=== PATIENT | female | born 1965 | race Caucasian/White ===

== ENCOUNTER 2019-02-04 20:49 | Emergency (ER) | payer SELFPAY ==
[2019-02-04 20:59] VITALS: RESP 20; O2SAT 99
--- NOTE | 2019-02-04 22:11 | C.PDOC ---
History Of Present Illness 53 year old female hit her right elbow on a garbage container a week ago. Since then she has been out of work, she returned to work today with recurrence of the pain which prompted visit. Denies weakness or numbness. Time Seen by Provider: 02/04/19 21:12 Chief Complaint (Nursing): Upper Extremity Problem/Injury History Per: Patient History/Exam Limitations: no limitations Onset/Duration Of Symptoms: Days Current Symptoms Are (Timing): Still Present Exacerbating Factor(s): Nothing Recent travel outside of the [place]: No Past Medical History Reviewed: Historical Data, Nursing Documentation, Vital Signs Vital Signs: Last Vital Signs Temp 97.6 F 02/04/19 20:57 Pulse 63 02/04/19 20:57 Resp 20 02/04/19 20:57 BP 172/90 H 02/04/19 20:57 Pulse Ox 99 02/04/19 20:57 - Medical History PMH: HTN Family History: States: No Known Family Hx - Social History Hx Tobacco Use: No Hx Alcohol Use: No Hx Substance Use: No - Immunization History Hx Influenza Vaccination: No Hx Pneumococcal Vaccination: No Review Of Systems Musculoskeletal: Positive for: Other (Right elbow) Neurological: Negative for: Weakness, Numbness Physical Exam - Physical Exam Appears: Non-toxic Skin: Normal Color, Warm Head: Atraumatic, Normacephalic Eye(s): bilateral: Normal Inspection Extremity: Capillary Refill (<2 seconds), No Deformity, No Swelling, Other (No swelling, deformity, erythema, or ecchymosis of right elbow. ROM of right elbow causes pain but no limitations, remainder of RUE intact..) Pulses: Left Radial: Normal, Right Radial: Normal Neurological/Psych: Oriented x3, Normal Speech, Normal Motor, Normal Sensation ED Course And Treatment O2 Sat by Pulse Oximetry: 99 - Other Rad Right elbow x-ray X-Ray: Interpreted by Me, Viewed By Me Interpretation: No fracture or dislocations. Progress Note: Right elbow x-ray ordered, results were negative. Motrin administered. Patient is resting comfortably in no acute distress, vitals are stable, will discharge home with instructions to follow up with PMD. Disposition Counseled Patient/Family Regarding: Diagnosis, Need For Followup, Rx Given - Disposition Referrals: [facility] [Outside] Disposition: HOME/ ROUTINE Disposition Time: 22:06 Condition: STABLE Additional Instructions: POR FAVOR SIGUE EN CLINICA APPLICAR HIELO ( APPLY ICE) JANET MOTRIN ( TAKE MOTRIN DIRECTED) REGRESA SI PEOR (RETURN TO ER IF WORSE) Prescriptions: Ibuprofen [Motrin] 600 mg PO Q6H #30 tab Instructions: Contusion (DC) Forms: [employer] (Kiswahili) Print Language: LAO - Clinical Impression Clinical Impression: Contusion of elbow, right - PA / TILE EDGER / Resident Statement MD/DO has reviewed & agrees with the documentation as recorded. - Scribe Statement The provider has reviewed the documentation as recorded by the Scribe Donovan Blanco All medical record entries made by the Garfieldibkaitlin were at my direction and personally dictated by me. I have reviewed the chart and agree that the record accurately reflects my personal performance of the history, physical exam, medical decision making, and the department course for this patient. I have also personally directed, reviewed, and agree with the discharge instructions and disposition.
[2019-02-04 22:12] VITALS: BP 149/74; PULSE 58; TEMP 97.8
--- NOTE | 2019-02-05 10:07 | RAD ---
Right elbow three views History: Injury. Comparison: None available. Findings: Bony productive change seen at the medial humeral condyle, nonspecific. This may represent chronic ligamentous and or tendinous injury. No evidence of acute displaced fracture dislocation. No significant elbow joint effusion. Spurring of the coronoid process. Impression: Bony productive change seen at the medial humeral condyle, nonspecific. This may represent chronic ligamentous and or tendinous injury. No evidence of acute displaced fracture or dislocation. No significant elbow joint effusion. Spurring of the coronoid process. If pain persists, consider correlation with MRI.
== END 2019-02-04 22:25 | disposition home or self-care (01) ==
LOC: C.ER 20:49
DX: S50.01XA Contusion of right elbow, initial encounter (principal); W22.8XXA Striking against or struck by other objects, initial encounter